=== PATIENT | female | born 1995 | race Caucasian/White ===

== ENCOUNTER 2017-02-08 18:44 | Emergency (ER) | payer OTHER ==
--- NOTE | ~2017-02-08 | EKG ---
PATIENT: KARELY FAJARDO UNIT #: [id number] Ventricular Rate: 80 BPM Atrial Rate: 80 BPM P-R Interval: 190 ms QRS Duration: 98 ms Q-T Interval: 364 ms QTC Calculation(Bezet): 419 ms P [place]: 75 degrees Calculated R [place]: 62 degrees Calculated T [place]: 63 degrees Diagnosis Line: Normal sinus rhythm with sinus arrhythmia Diagnosis Line: Normal ECG Diagnosis Line: Diagnosis Line: Confirmed by BRUCE FLORES MD ([id number]) on Diagnosis Line: 03/18/2017 7:04:20 AM INTERPRETING MD: BON
--- NOTE | ~2017-02-08 | CR63 ---
[facility]. [facility] A Service of [facility] & [facility] RADIOLOGY TEXT RESULTS PATIENT: KARELY FAJARDO LOCATION: SED : [birth year] UNIT #: [id number] AGE: [address]: Jose Matson SEX: F ORDER DR: [id number] [place] [id number] E MR#: [id number] Acc #: [id number] NAME: KARELY FAJARDO. : 1995 SEX: F STUDY DATE/TIME: 02/08/2017 18:44 UNIT: SED ROOM: STUDY DESCRIPTION: CR Chest 2 View Attending Physician: Jose Matson P.A.-C. Ordering Physician: Jose Matson P.A.-C. Primary Care Physician: Conrado Michele M.D. MEDICAL IMAGING REPORT This report is preliminary unless electronic signature is present. EXAM Chest PA and lateral 02/08/2017 HISTORY Chest pain and chest pressure for 2 months worsening this morning. FINDINGS PA and lateral examination of the chest upright shows a good expansion of the parenchyma with a normal distribution of the pulmonary vascularity. There is no indication of congestion, effusion, infiltrate, tumor, or nodular density. The pleural reflections and diaphragmatic contours are normal. The cardiac silhouette and mediastinal anatomy is within normal limits. IMPRESSION Normal chest. Dictated by... Martínez Lawrence M.D. THIS IS AN ELECTRONICALLY VERIFIED REPORT Martínez Lawrence M.D. at 02/09/2017 10:55 AM MARCELINO/marion TD: 02/09/2017 09:00 JOB #: [id number] MEDICAL IMAGING REPORT
[2017-02-08 18:27] LABS: BASOPHIL% 0.7 % (0-2.5); EOSINOPHIL# 0.3 X10e3 (0-0.7); EOSINOPHIL% 3.7 % (0.0-7.0); HEMATOCRIT 40.6 % (35.0-45.0); HEMOGLOBIN 13.4 gm/dL (12.0-16.0); LYMPHOCYTE# 1.6 X10e3 (1.0-3.5); MEAN CELL VOLUME 91.7 FL (83-96); MEAN CORPUSCULAR HEMOGLOBIN 30.3 PG (28-34); MEAN CORPUSCULAR HGB CONC 33.1 g/dL (30-36); MEAN PLATELET VOLUME 9.9 FL (6.5-11.5); MONOCYTE# 0.6 X10e3 (0-1.0); MONOCYTE% 7.7 % (3.0-12.0); NEUTROPHIL# 4.7 X10e3 (1.5-7.1); NEUTROPHIL% 64.9 % (40-75); PLATELET COUNT 158 X10e3 (140-420); RED BLOOD COUNT 4.43 X10e (3.90-5.30); RED CELL DISTRIBUTION WIDTH 13.1 % (11.0-15.5); URINE SOURCE CLEAN CATCH; WHITE BLOOD COUNT 7.2 X10e3 (4.0-10.5)
[2017-02-08 18:29] LABS: DIFF IND NO; URINE APPEARANCE CLEAR; URINE BILIRUBIN NEG (NEG); URINE BLOOD NEG (NEG); URINE COLOR YELLOW; URINE GLUCOSE NEG (NORM); URINE KETONE NEG (NEG); URINE LEUKOCYTE ESTERASE NEG (NEG); URINE NITRATE NEG (NEG); URINE PROTEIN NEG (NEG); URINE SPECIFIC GRAVITY 1.015 (1.003-1.035)
[2017-02-08 18:30] LABS: MICRO INDICATED? NO
[2017-02-08 18:42] LABS: BLOOD UREA NITROGEN 11 mg/dL (9-23); BUN/CREATININE RATIO 15.71; CALCIUM SERUM 9.4 mg/dL (8.4-10.2); CARBON DIOXIDE 26 mmol/L (22-31); CHLORIDE 104 mmol/L (100-111); CREATININE SERUM 0.7 mg/dL (0.6-1.4); GLOM FILT RATE Estimated ABOVE60 mL/min (>60); GLUCOSE FASTING 95 mg/dL (70-110); POTASSIUM 4.2 mmol/L (3.5-5.1); SODIUM 136 mmol/L (135-145)
== END 2017-02-08 19:36 | disposition home or self-care (01) ==
LOC: SED 18:44
PROVIDERS: Physician Assistant
DX: R07.89 Other chest pain (principal)
CPT/HCPCS: 36415; 71020; 80048; 81003; 84703; 85025; 93005; 99284

== ENCOUNTER 2017-04-14 22:06 | Emergency (ER) | payer OTHER ==
[2017-04-14] MEDS ORDERED: BIRTH CONTROL PILL (22:13)
[2017-08-24] MEDS ORDERED: NO MEDICATIONS (17:59)
== END 2017-04-15 00:26 | disposition home or self-care (01) ==
LOC: SED 22:06
DX: L02.415 Cutaneous abscess of right lower limb (principal); L03.115 Cellulitis of right lower limb
CPT/HCPCS: 10060; 87070; 87077; 87088; 87186; 87205; 99283

== ENCOUNTER 2017-04-18 20:07 | Emergency (ER) | payer OTHER ==
[~2017-04-18 20:07] MED LIST: BIRTH CONTROL PILL
[2017-04-18] MEDS ORDERED: CLINDAMYCIN HCL (20:15)
[2017-08-24] MEDS ORDERED: NO MEDICATIONS (17:59)
== END 2017-04-18 20:43 | disposition home or self-care (01) ==
LOC: SED 20:07
DX: Z48.01 Encounter for change or removal of surgical wound dressing (principal); G40.909 Epilepsy, unspecified, not intractable, without status epilepticus
CPT/HCPCS: 99281

== ENCOUNTER 2017-07-09 13:16 | Emergency (ER) | payer OTHER ==
[~2017-07-09 13:16] MED LIST changes: +CLINDAMYCIN HCL
[2017-08-24] MEDS ORDERED: NO MEDICATIONS (17:59)
== END 2017-07-09 14:02 | disposition left against medical advice (07) ==
LOC: SED 13:16
DX: Z53.21 Procedure and treatment not carried out due to patient leaving prior to being seen by health care provider (principal)

== ENCOUNTER 2017-08-11 21:41 | Emergency (ER) | payer OTHER ==
[~2017-08-11] VITALS: Ht 160 cm; Wt 61.7 kg
[2017-08-11] MEDS ORDERED: HYDROCODON-ACE1 EAC9 PO (22:05)
[2017-08-24] MEDS ORDERED: NO MEDICATIONS (17:59)
== END 2017-08-11 23:06 | disposition home or self-care (01) ==
LOC: SED 21:41
DX: L03.116 Cellulitis of left lower limb (principal); L03.115 Cellulitis of right lower limb
CPT/HCPCS: 99282

== ENCOUNTER 2017-08-13 19:25 | Emergency (ER) | payer OTHER ==
[~2017-08-13] VITALS: Ht 12.7 cm; Wt 62.1 kg
[~2017-08-13 19:25] MED LIST changes: +HYDROCODON-ACE1 EAC9 PO
[2017-08-13 20:06] LABS: BASOPHIL% 0.3 % (0-2.5); DIFF IND NO; EOSINOPHIL# 0.2 X10e3 (0-0.7); EOSINOPHIL% 2.2 % (0.0-7.0); HEMATOCRIT 35.7 % (35.0-45.0); LYMPHOCYTE# 1.2 X10e3 (1.0-3.5); LYMPHOCYTE% 10.9 % (17.0-45.0); MEAN CELL VOLUME 90.5 FL (83-96); MEAN CORPUSCULAR HEMOGLOBIN 30.5 PG (28-34); MEAN CORPUSCULAR HGB CONC 33.8 g/dL (30-36); MEAN PLATELET VOLUME 9.3 FL (6.5-11.5); MONOCYTE# 0.8 X10e3 (0-1.0); MONOCYTE% 7.1 % (3.0-12.0); NEUTROPHIL% 79.5 % (40-75); PLATELET COUNT 172 X10e3 (140-420); RED BLOOD COUNT 3.94 X10e (3.90-5.30); RED CELL DISTRIBUTION WIDTH 12.8 % (11.0-15.5); WHITE BLOOD COUNT 11.3 X10e3 (4.0-10.5)
[2017-08-13 20:16] LABS: BILIRUBIN, DIRECT 0.1 mg/dL (0.0-0.2); BILIRUBIN,INDIRECT 0.3 mg/dL (0.0-0.9); BILIRUBIN,TOTAL 0.4 mg/dL (0.2-2.0); CALCIUM SERUM 8.9 mg/dL (8.4-10.2); CREATININE SERUM 0.6 mg/dL (0.6-1.4); GLOM FILT RATE Estimated 131.2 mL/min (>60); POTASSIUM 3.5 mmol/L (3.5-5.1); PROTEIN TOTAL SERUM 7.5 g/dL (6.0-8.3)
[2017-08-24] MEDS ORDERED: NO MEDICATIONS (17:59)
== END 2017-08-13 21:07 | disposition home or self-care (01) ==
LOC: SED 19:25
PROVIDERS: Emergency Medicine
DX: L02.415 Cutaneous abscess of right lower limb (principal); L03.116 Cellulitis of left lower limb
CPT/HCPCS: 36415; 80048; 80076; 85025; 87070; 87077; 87186; 87205; 99283